=== PATIENT | male | born 1935 | race African-American/Black ===

== ENCOUNTER 2021-02-07 20:59 | Inpatient (IN) | payer MEDICARE ==
[~2021-02-07 20:59] MED LIST: Rocuronium Bromide 10 MG/ML (10ML VIAL) ONE
[2021-02-07] MEDS ORDERED: Lorazepam 2 MG/ML VIAL ONE (21:25)
[2021-02-07 22:06] LABS: #Lymphocytes 1.1 thou/uL (1.20-3.40); #Monocytes 0.3 thou/uL (0.11-0.59); #Neutrophils 3.5 thou/uL (1.40-6.50); %Eosinophils 0.5 % (0.0-10.0); %Lymphocytes 22.3 % (21.0-51.0); %Monocytes 6.7 % (0.0-10.0); %Neutrophils 70.5 % (42.0-75.0); Hemoglobin 10.3 g/dL (14.0-18.0); Mean Corpuscular Hemoglobin 31.1 pg (27.0-31.0); Mean Corpuscular Volume 94.3 fL (78.0-98.0); Mean Platelet Volume 7.4 fL (7.4-10.4); Platelet Count 446 thou/uL (130-400); RBC Distribution Width 15.1 % (11.5-14.5); White Blood Cell (WBC) Count 4.9 thou/uL (4.8-10.8)
[2021-02-07 22:22] LABS: INR-International Normal Ratio 1.2; PTT 36.1 sec (22.9-36.1); Prothrombin Time 14.8 sec (12.0-14.7)
[2021-02-07 22:31] LABS: ALT (SGPT) 13 U/L (8-55); AST (SGOT) 27 U/L (5-34); Albumin 3.2 g/dL (3.4-4.8); Alkaline Phosphatase 98 U/L (40-110); Anion Gap 21 mmol/L (10-20); BUN (Urea Nitrogen) 18 mg/dL (8.4-25.7); Bilirubin, Total 0.5 mg/dL (0.2-1.2); CK (CPK) 32 U/L (30-200); Calc. Creatinine Clearance 0 mL/min (70-130); Calcium 9.4 mg/dL (7.8-10.44); Carbon Dioxide 21 mmol/L (23-31); Chloride 111 mmol/L (98-107); Globulin 4.5 g/dL (2.4-3.5); Glucose 136 mg/dL (83-110); Lipase 25 U/L (8-78); Potassium 3.8 mmol/L (3.5-5.1); Protein, Total 7.7 g/dL (5.8-8.1); Sodium 149 mmol/L (136-145)
[2021-02-07 22:49] LABS: Bilirubin Negative (Negative); Blood, Urine 1+ (Negative); Clarity Clear (Clear); Glucose, Urine (Dipstick) Normal (Negative); Ketone, Urine 10 mg/dL (Negative); Leukocyte Negative Leu/uL (Negative); Mucous/LPF Rare LPF (<2+); Nitrite Negative (Negative); Protein, Urine (Dipstick) 30 mg/dL (Neg-Trace); RBC/HPF 0-3 HPF (0-3); Specific Gravity, Urine 1.014 (1.002-1.036); Squamous Epithelial None Seen HPF (0-3); Urobilinogen Normal mg/dL (Less than 2); pH, Urine 6.5 (5.0-9.0)
[2021-02-07 22:50] LABS: Bacteria/HPF 1+ HPF (None Seen)
[2021-02-07] MEDS ORDERED: Cefepime 2 GM VIAL ONE (22:50)
[2021-02-07 22:51] LABS: CKMB 2.2 ng/mL (0-6.6)
[2021-02-07 22:55] LABS: SARS-CoV-2 NAA Rapid Test Not Detected (NotDetected)
[2021-02-07 23:16] LABS: Actual Bicarbonate (HCO3v) 23 mEq/L (22-28); Analyzer IN Cardio ER; Base Excess -2.5 mEq/L (-2.0 to +3.0); Calcium, Ionized (venous) 1.07 mmol/L (1.16-1.32); Chloride (VBG) 113 mmol/L (98-106); Hemoglobin (Hb) 9.2 g/dL (12.6-17.4); Potassium (VBG) 3.48 mmol/L (3.70-5.30); Sodium 146.2 mmol/L (133-146); pH (venous) 7.34 (7.32-7.43)
[2021-02-07] MEDS ORDERED: Vancomycin 1 GM/200 ML BAG ONE (23:23)
[2021-02-08] MEDS ORDERED: Sodium Chloride 0.9% 1,000 ML IV SCH (01:00)
[2021-02-08 01:54] VITALS: BMI 18.0
[2021-02-08 02:38] LABS: Lactic Acid 1.6 mmol/L (0.5-2.2)
[2021-02-08 02:45] LABS: Troponin I 0.055 ng/mL (< 0.028)
[2021-02-08] MEDS ORDERED: Acetaminophen 325 MG TAB PO PRN (03:16)
[2021-02-08] MEDS ORDERED: Ondansetron PF 4 MG/2 ML Vial IVP PRN (03:16)
[2021-02-08 03:38] LABS: Amphetamine Not Detected (NotDetected); Barbiturates Screen Not Detected (NotDetected); Benzodiazepine Screen Not Detected (NotDetected); Cocaine Metabolite Screen Not Detected (NotDetected); Methadone Not Detected (NotDetected); Methamphetamine Not Detected (NotDetected); Opiate Screen Not Detected (NotDetected); Oxycodone Screen Not Detected (NotDetected); Phencyclidine (PCP) Not Detected (NotDetected); THC/Cannabinoid Screen Not Detected (NotDetected); Tricyclic Screen Detected (NotDetected)
[2021-02-08 03:54] LABS: #Lymphocytes 1.6 thou/uL (1.20-3.40); %Basophils 0.2 % (0.0-1.0); %Eosinophils 0.5 % (0.0-10.0); %Monocytes 11.9 % (0.0-10.0); %Neutrophils 69.5 % (42.0-75.0); Hemoglobin 8.8 g/dL (14.0-18.0); Mean Corpuscular HGB CONC 32.4 g/dL (32.0-36.0); Mean Corpuscular Hemoglobin 30.3 pg (27.0-31.0); Mean Corpuscular Volume 93.5 fL (78.0-98.0); Mean Platelet Volume 7.4 fL (7.4-10.4); Platelet Count 393 thou/uL (130-400); White Blood Cell (WBC) Count 8.6 thou/uL (4.8-10.8)
[2021-02-08 04:18] LABS: Anion Gap 12 mmol/L (10-20); BUN (Urea Nitrogen) 17 mg/dL (8.4-25.7); Calc. Creatinine Clearance 27 mL/min (70-130); Calcium 8.6 mg/dL (7.8-10.44); Carbon Dioxide 26 mmol/L (23-31); Chloride 113 mmol/L (98-107); Glucose 86 mg/dL (83-110); Potassium 3.7 mmol/L (3.5-5.1); Sodium 147 mmol/L (136-145)
[2021-02-08 04:24] LABS: Troponin I 0.094 ng/mL (< 0.028)
[2021-02-08] MEDS: Sodium Chloride 0.9% 1,000 ML IV SCH ×3 (04:24→21:18)
[2021-02-08 06:53] LABS: Magnesium 1.9 mg/dL (1.6-2.6)
[2021-02-08] MEDS: Enoxaparin Sodium 30 MG/0.3 ML SYRINGE SC SCH (09:29)
[2021-02-08 14:09] LABS: Hemoglobin 9.2 g/dL (14.0-18.0)
[2021-02-08] MEDS: Pantoprazole 40 MG VIAL IVP SCH (19:25)
[2021-02-08] MEDS ORDERED: Cefepime 2 GM in Sodium Chloride 0.9% 100 ML IVPB SCH (21:00)
[2021-02-08] MEDS ORDERED: diphenhydrAMINE 50 MG/ML VIAL IVP SCH (21:15)
[2021-02-08 21:24] LABS: Hemoglobin 9.2 g/dL (14.0-18.0)
[2021-02-08 21:41] LABS: Vancomycin, Random 9.7 ug/mL (See Comment)
[2021-02-08] MEDS ORDERED: Vancomycin HCl 500 MG in Sodium Chloride 0.9% 100 ML IVPB SCH (22:00)
[2021-02-08] MEDS ORDERED: Vancomycin HCl 750 MG in Sodium Chloride 0.9% 250 ML 250 ML IVPB SCH (22:00)
[2021-02-09] MEDS: Sodium Chloride 0.9% 1,000 ML IV SCH (05:04)
[2021-02-09 06:51] LABS: #Basophils 0.1 thou/uL (0.0-0.2); #Eosinphils 0.1 thou/uL (0.0-0.7); #Lymphocytes 1.6 thou/uL (1.20-3.40); #Monocytes 0.8 thou/uL (0.11-0.59); #Neutrophils 4.2 thou/uL (1.40-6.50); %Eosinophils 1.4 % (0.0-10.0); %Monocytes 11.3 % (0.0-10.0); %Neutrophils 62.2 % (42.0-75.0); Hemoglobin 8.6 g/dL (14.0-18.0); Hemoglobin 8.7 g/dL (14.0-18.0); Mean Corpuscular HGB CONC 32.7 g/dL (32.0-36.0); Mean Corpuscular Hemoglobin 30.7 pg (27.0-31.0); Mean Corpuscular Volume 93.6 fL (78.0-98.0); Mean Platelet Volume 7.5 fL (7.4-10.4); Platelet Count 373 thou/uL (130-400); RBC Distribution Width 15.1 % (11.5-14.5); Red Blood Cell (RBC) Count 2.84 mill/uL (4.70-6.10); White Blood Cell (WBC) Count 6.8 thou/uL (4.8-10.8)
[2021-02-09 07:13] LABS: Anion Gap 15 mmol/L (10-20); BUN (Urea Nitrogen) 12 mg/dL (8.4-25.7); Calc. Creatinine Clearance 30 mL/min (70-130); Calcium 8.8 mg/dL (7.8-10.44); Carbon Dioxide 19 mmol/L (23-31); Chloride 120 mmol/L (98-107); Glucose 62 mg/dL (83-110); Magnesium 1.7 mg/dL (1.6-2.6); Potassium 3.5 mmol/L (3.5-5.1); Sodium 150 mmol/L (136-145)
[2021-02-09] MEDS: Pantoprazole 40 MG VIAL IVP SCH ×2 (09:24→20:35)
[2021-02-09] MEDS: Enoxaparin Sodium 30 MG/0.3 ML SYRINGE SC SCH (09:24)
[2021-02-09] MEDS: Dextrose 5% in Water 1,000 ML IV SCH ×3 (10:44→22:42)
[2021-02-09] MEDS ORDERED: Cefepime 2 GM in Sodium Chloride 0.9% 100 ML IVPB SCH (12:00)
[2021-02-09] MEDS: Lorazepam 2 MG/ML VIAL SLOW IVP PRN (12:24)
[2021-02-09 13:35] LABS: Hemoglobin 8.4 g/dL (14.0-18.0)
[2021-02-09] MEDS: risperiDONE 1 MG TAB PO SCH ×2 (20:37→22:52)
[2021-02-09 22:02] LABS: Vancomycin, Random 12.9 ug/mL (See Comment)
[2021-02-09] MEDS ORDERED: Vancomycin HCl 500 MG in Sodium Chloride 0.9% 100 ML IVPB SCH (22:30)
[2021-02-10] MEDS: Cefepime 1 GM in Sodium Chloride 0.9% 100 ML IVPB SCH ×3 (00:39→23:10)
[2021-02-10 06:49] LABS: Anion Gap 11 mmol/L (10-20); BUN (Urea Nitrogen) 8 mg/dL (8.4-25.7); Calc. Creatinine Clearance 35 mL/min (70-130); Calcium 8.6 mg/dL (7.8-10.44); Carbon Dioxide 21 mmol/L (23-31); Chloride 116 mmol/L (98-107); Glucose 102 mg/dL (83-110); Magnesium 1.5 mg/dL (1.6-2.6); Potassium 4.2 mmol/L (3.5-5.1); Sodium 144 mmol/L (136-145)
[2021-02-10 07:49] LABS: #Basophils 0.1 thou/uL (0.0-0.2); #Eosinphils 0.2 thou/uL (0.0-0.7); #Lymphocytes 1.6 thou/uL (1.20-3.40); #Monocytes 0.8 thou/uL (0.11-0.59); #Neutrophils 3.7 thou/uL (1.40-6.50); %Basophils 0.9 % (0.0-1.0); %Eosinophils 3.5 % (0.0-10.0); %Lymphocytes 25.2 % (21.0-51.0); %Monocytes 12.8 % (0.0-10.0); %Neutrophils 57.6 % (42.0-75.0); Hemoglobin 8.9 g/dL (14.0-18.0); Mean Corpuscular HGB CONC 33.3 g/dL (32.0-36.0); Mean Corpuscular Hemoglobin 30.9 pg (27.0-31.0); Mean Platelet Volume 7.4 fL (7.4-10.4); Platelet Count 330 thou/uL (130-400); RBC Distribution Width 14.9 % (11.5-14.5); Red Blood Cell (RBC) Count 2.86 mill/uL (4.70-6.10); White Blood Cell (WBC) Count 6.4 thou/uL (4.8-10.8)
[2021-02-10] MEDS: Pantoprazole 40 MG VIAL IVP SCH ×2 (09:00→20:42)
[2021-02-10] MEDS: Enoxaparin Sodium 30 MG/0.3 ML SYRINGE SC SCH (09:01)
[2021-02-10] MEDS: Dextrose 5% in Water 1,000 ML IV SCH ×2 (11:00→23:07)
[2021-02-10] MEDS: Lorazepam 2 MG/ML VIAL SLOW IVP PRN (19:14)
[2021-02-10] MEDS: risperiDONE 1 MG TAB PO SCH (20:38)
[2021-02-10 21:42] LABS: Vancomycin, Random 13.7 ug/mL (See Comment)
[2021-02-10] MEDS: Vancomycin HCl 750 MG in Sodium Chloride 0.9% 250 ML 250 ML IVPB SCH (23:07)
[2021-02-11] MEDS: risperiDONE 1 MG TAB PO SCH ×2 (00:02→11:27)
[2021-02-11] MEDS: Lorazepam 2 MG/ML VIAL SLOW IVP PRN ×2 (00:47→18:22)
[2021-02-11 07:50] LABS: Magnesium 1.5 mg/dL (1.6-2.6)
[2021-02-11] MEDS: Enoxaparin Sodium 30 MG/0.3 ML SYRINGE SC SCH (10:09)
[2021-02-11] MEDS: Pantoprazole 40 MG VIAL IVP SCH ×2 (10:11→20:35)
[2021-02-11] MEDS: Cefepime 1 GM in Sodium Chloride 0.9% 100 ML IVPB SCH ×2 (11:26→23:47)
[2021-02-11] MEDS: Dextrose 5% in Water 1,000 ML IV SCH ×2 (11:26→15:00)
[2021-02-11] MEDS: Benztropine 1 MG TAB PO SCH (11:26)
[2021-02-11] MEDS ORDERED: Fentanyl 100 MCG/2 ML VIAL ONE (12:56)
[2021-02-11] MEDS: Vancomycin HCl 750 MG in Sodium Chloride 0.9% 250 ML 250 ML IVPB SCH (22:16)
[2021-02-12] MEDS: risperiDONE 1 MG TAB PO SCH ×4 (00:39→20:47)
[2021-02-12] MEDS: Dextrose 5% in Water 1,000 ML IV SCH ×2 (03:24→13:05)
[2021-02-12] MEDS: Pantoprazole 40 MG VIAL IVP SCH ×2 (08:51→20:45)
[2021-02-12] MEDS: Enoxaparin Sodium 30 MG/0.3 ML SYRINGE SC SCH (08:51)
[2021-02-12] MEDS: Benztropine 1 MG TAB PO SCH (08:51)
[2021-02-12] MEDS: Cefepime 1 GM in Sodium Chloride 0.9% 100 ML IVPB SCH (13:00)
[2021-02-12 22:14] LABS: Vancomycin, Trough 18.3 ug/mL
[2021-02-12] MEDS: Vancomycin HCl 750 MG in Sodium Chloride 0.9% 250 ML 250 ML IVPB SCH (22:47)
[2021-02-13] MEDS: Cefepime 1 GM in Sodium Chloride 0.9% 100 ML IVPB SCH ×2 (00:36→12:22)
[2021-02-13] MEDS: Lorazepam 2 MG/ML VIAL SLOW IVP PRN ×2 (01:05→06:39)
[2021-02-13] MEDS: Dextrose 5% in Water 1,000 ML IV SCH ×3 (02:01→21:21)
[2021-02-13] MEDS: Pantoprazole 40 MG VIAL IVP SCH ×2 (09:23→20:57)
[2021-02-13] MEDS: Enoxaparin Sodium 30 MG/0.3 ML SYRINGE SC SCH (09:28)
[2021-02-13] MEDS: Benztropine 1 MG TAB PO SCH (09:30)
[2021-02-13] MEDS: risperiDONE 1 MG TAB PO SCH ×2 (09:31→20:57)
[2021-02-13] MEDS: Vancomycin HCl 750 MG in Sodium Chloride 0.9% 250 ML 250 ML IVPB SCH (23:30)
[2021-02-14] MEDS: Cefepime 1 GM in Sodium Chloride 0.9% 100 ML IVPB SCH ×2 (00:39→12:03)
[2021-02-14] MEDS: Lorazepam 2 MG/ML VIAL SLOW IVP PRN (02:11)
[2021-02-14] MEDS: Pantoprazole 40 MG VIAL IVP SCH ×2 (09:06→19:43)
[2021-02-14] MEDS: Benztropine 1 MG TAB PO SCH (09:06)
[2021-02-14] MEDS: Enoxaparin Sodium 30 MG/0.3 ML SYRINGE SC SCH (09:06)
[2021-02-14] MEDS: Saccharomyces boulardii 250 MG CAP PO SCH (09:07)
[2021-02-14] MEDS: risperiDONE 1 MG TAB PO SCH ×2 (09:12→19:45)
[2021-02-14] MEDS: Dextrose 5% in Water 1,000 ML IV SCH ×2 (12:00→19:44)
[2021-02-14 22:11] LABS: Vancomycin, Trough 20.7 ug/mL
[2021-02-14] MEDS: Vancomycin HCl 750 MG in Sodium Chloride 0.9% 250 ML 250 ML IVPB SCH (23:20)
[2021-02-15] MEDS: Cefepime 1 GM in Sodium Chloride 0.9% 100 ML IVPB SCH ×2 (00:18→13:50)
[2021-02-15] MEDS: Dextrose 5% in Water 1,000 ML IV SCH ×2 (00:19→13:51)
[2021-02-15 08:01] LABS: Anion Gap 8 mmol/L (10-20); BUN (Urea Nitrogen) 15 mg/dL (8.4-25.7); Calc. Creatinine Clearance 27 mL/min (70-130); Calcium 8.6 mg/dL (7.8-10.44); Carbon Dioxide 22 mmol/L (23-31); Chloride 110 mmol/L (98-107); Glucose 119 mg/dL (83-110); Sodium 137 mmol/L (136-145)
[2021-02-15 08:03] VITALS: BP 98/63; TEMP 97.5
[2021-02-15 08:03] LABS: Potassium 2.8 mmol/L (3.5-5.1)
[2021-02-15] MEDS ORDERED: Potassium Chloride 20 MEQ TAB PO SCH (08:30)
[2021-02-15] MEDS: Saccharomyces boulardii 250 MG CAP PO SCH (09:33)
[2021-02-15] MEDS: Benztropine 1 MG TAB PO SCH (09:34)
[2021-02-15] MEDS: Enoxaparin Sodium 30 MG/0.3 ML SYRINGE SC SCH (09:34)
[2021-02-15] MEDS: Pantoprazole 40 MG VIAL IVP SCH ×2 (09:34→09:47)
[2021-02-15] MEDS: risperiDONE 1 MG TAB PO SCH (09:35)
[2021-02-15 12:00] LABS: #Eosinphils 0.1 thou/uL (0.0-0.7); #Lymphocytes 1.6 thou/uL (1.20-3.40); #Monocytes 1.4 thou/uL (0.11-0.59); #Neutrophils 7.3 thou/uL (1.40-6.50); %Basophils 0.4 % (0.0-1.0); %Lymphocytes 15.2 % (21.0-51.0); %Monocytes 13.6 % (0.0-10.0); %Neutrophils 69.9 % (42.0-75.0); Hemoglobin 8.8 g/dL (14.0-18.0); Mean Corpuscular HGB CONC 32.7 g/dL (32.0-36.0); Mean Corpuscular Hemoglobin 30.1 pg (27.0-31.0); Mean Corpuscular Volume 92.1 fL (78.0-98.0); Mean Platelet Volume 8.1 fL (7.4-10.4); Platelet Count 208 thou/uL (130-400); RBC Distribution Width 14.8 % (11.5-14.5); Red Blood Cell (RBC) Count 2.94 mill/uL (4.70-6.10); White Blood Cell (WBC) Count 10.5 thou/uL (4.8-10.8)
[2021-02-15 12:44] LABS: SARS-CoV-2 PCR by NAA Not Detected (NotDetected)
[2021-02-15] MEDS ORDERED: Ciprofloxacin 500 MG TAB PO SCH (20:00)
[2021-02-15] MEDS ORDERED: Cephalexin 250 MG CAP PO SCH (21:00)
== END 2021-02-15 17:57 | DRG 559 ==
LOC: ERS 20:59 → IMCU/EMU 21:50 → T4-A 02-08 15:14
PROVIDERS: ADMIT Internal Medicine; ATTEND Internal Medicine
PROC: 0S993ZX Drainage of Right Hip Joint, Percutaneous Approach, Diagnostic (ICD-10-PCS; principal; 2021-02-11)
DX: T84.51XA Infection and inflammatory reaction due to internal right hip prosthesis, initial encounter (principal); Z66 Do not resuscitate; Z20.822 Contact with and (suspected) exposure to COVID-19; A41.4 Sepsis due to anaerobes; A41.01 Sepsis due to Methicillin susceptible Staphylococcus aureus; R65.20 Severe sepsis without septic shock; G93.41 Metabolic encephalopathy; E44.0 Moderate protein-calorie malnutrition; N17.9 Acute kidney failure, unspecified; E87.0 Hyperosmolality and hypernatremia; Z68.1 Body mass index [BMI] 19.9 or less, adult; F03.91 Unspecified dementia, unspecified severity, with behavioral disturbance; F05 Delirium due to known physiological condition; E86.0 Dehydration; R77.8 Other specified abnormalities of plasma proteins; R29.6 Repeated falls; Y83.1 Surgical operation with implant of artificial internal device as the cause of abnormal reaction of the patient, or of later complication, without mention of misadventure at the time of the procedure; Z28.21 Immunization not carried out because of patient refusal; Z78.1 Physical restraint status; Z98.890 Other specified postprocedural states; Z87.891 Personal history of nicotine dependence; Z91.81 History of falling
CPT/HCPCS: 0240U; 20610; 36415; 71045; 77002; 80048; 80053; 80202; 80306; 81003; 81015; 82550; 82553; 82565; 82805; 83605; 83690; 83735; 83880; 84484; 85025; 85610; 85730; 86850; 86900; 86901; 87040; 87070; 87077; 87086; 87186; 87205; 93005; C9113; J0692; J1200; J1650; J2060; J3010; J3370; J3490; J7050; J7070; U0003; U0005

== ENCOUNTER 2021-02-23 13:37 | Emergency (ER) | payer MEDICARE ==
[2021-02-23] MEDS ORDERED: Morphine 4 MG/ML VIAL ONE (14:27)
[2021-02-23 15:14] LABS: Hemoglobin 6.9 g/dL (14.0-18.0); Mean Corpuscular HGB CONC 30.5 g/dL (32.0-36.0); Mean Corpuscular Hemoglobin 30.3 pg (27.0-31.0); Mean Corpuscular Volume 99.6 fL (78.0-98.0); Mean Platelet Volume 8.4 fL (7.4-10.4); Platelet Count 132 thou/uL (130-400); RBC Distribution Width 16.1 % (11.5-14.5); Red Blood Cell (RBC) Count 2.28 mill/uL (4.70-6.10); White Blood Cell (WBC) Count 14.9 thou/uL (4.8-10.8)
[2021-02-23 15:28] LABS: ALT (SGPT) 11 U/L (8-55); AST (SGOT) 15 U/L (5-34); Albumin 1.5 g/dL (3.4-4.8); Alkaline Phosphatase 73 U/L (40-110); Anion Gap 12 mmol/L (10-20); Anisocytosis SLIGHT = 6-15 cells (100X) (0-5/hpf); BUN (Urea Nitrogen) 24 mg/dL (8.4-25.7); Band 20 % (5-11); Bilirubin, Total 0.4 mg/dL (0.2-1.2); Burr Cells SLIGHT = 2-5 cells (100X) (0-1/hpf); Calc. Creatinine Clearance 0 mL/min (70-130); Carbon Dioxide 11 mmol/L (23-31); Globulin 2.7 g/dL (2.4-3.5); Lymphocytes 9 % (21-51); MDiff Complete? YES; Monocytes 1 % (0-10); Neutrophil 70 % (42-75); Nucleated RBC 1 % (0); Ovalocytes SLIGHT = 2-5 cells (100X) (0-1/hpf); Platelet Morphology Comment Appears Adequate; Poikilocytosis SLIGHT = 6-15 cells (100X) (0-5/hpf); Polychromasia SLIGHT = 2-3 cells (100X) (0-2/hpf); Protein, Total 4.2 g/dL (5.8-8.1); Schistocytes SLIGHT = 2-5 cells (100X) (0-1/hpf); Sodium 157 mmol/L (136-145); Spherocytes SLIGHT = 1-5 cells (100X) (None Seen)
[2021-02-23 15:59] LABS: Calcium 5.8 mg/dL (7.8-10.44); Chloride 137 mmol/L (98-107); Glucose 52 mg/dL (83-110); Potassium 2.9 mmol/L (3.5-5.1)
[2021-02-23 17:53] LABS: SARS-CoV-2 NAA Rapid Test Not Detected (NotDetected)
[2021-02-23] MEDS ORDERED: Haloperidol Lactate 5 MG/ML VIAL SLOW IVP PRN (20:15)
[2021-02-23] MEDS ORDERED: Scopolamine 1.5 mg/72 hour Patch TOP PRN (20:15)
[2021-02-23] MEDS ORDERED: Acetaminophen 650 MG Suppository PR PRN (20:15)
[2021-02-23] MEDS ORDERED: diphenhydrAMINE 50 MG/ML VIAL IVP PRN (20:15)
[2021-02-23] MEDS ORDERED: Ondansetron PF 4 MG/2 ML Vial IVP PRN (20:15)
[2021-02-23] MEDS ORDERED: Lorazepam 1 MG TAB PO PRN (20:15)
== END 2021-02-23 18:42 | disposition hospice, inpatient (51) ==
LOC: ERS 13:37
DX: I95.9 Hypotension, unspecified (principal); R09.02 Hypoxemia; Z87.891 Personal history of nicotine dependence
CPT/HCPCS: 71045; 80053; 83605; 84484; 85025; 96374; 99285; U0002; 36415; J2270

== ENCOUNTER 2021-02-23 18:51 | Inpatient (IN) | payer OTHER ==
[2021-02-23 21:32] VITALS: BP 84/54
[2021-02-24] MEDS ORDERED: diphenhydrAMINE 50 MG/ML VIAL IVP PRN (00:51)
[2021-02-24] MEDS ORDERED: Lorazepam 2 MG/ML VIAL SLOW IVP PRN (00:52)
[2021-02-24] MEDS ORDERED: Scopolamine 1.5 mg/72 hour Patch TD PRN (00:53)
[2021-02-24] MEDS ORDERED: Ondansetron PF 4 MG/2 ML Vial IVP PRN (00:53)
[2021-02-24] MEDS ORDERED: Morphine 4 MG/ML VIAL SLOW IVP PRN (00:56)
== END 2021-02-24 00:58 | disposition expired | DRG 951 ==
LOC: T4-A 18:51
PROVIDERS: ADMIT Family Medicine; ATTEND Family Medicine
DX: Z51.5 Encounter for palliative care (principal); Z66 Do not resuscitate; F03.91 Unspecified dementia, unspecified severity, with behavioral disturbance; R09.02 Hypoxemia; I95.9 Hypotension, unspecified; Z79.899 Other long term (current) drug therapy; Z86.19 Personal history of other infectious and parasitic diseases